=== PATIENT | male | born 1995 | race African-American/Black ===

== ENCOUNTER 2016-09-03 13:50 | Emergency (ER) | payer OTHER ==
[~2016-09-03] VITALS: Ht 193 cm; Wt 95.3 kg
[2016-09-03] MEDS ORDERED: MOBIC7.5 MG PO ×2 (15:21→15:26)
[2016-09-03 15:52] VITALS: BP 130/82
== END 2016-09-03 15:54 | disposition home or self-care (01) ==
LOC: ER 13:50
DX: S20.211A Contusion of right front wall of thorax, initial encounter (principal); F12.10 Cannabis abuse, uncomplicated; V43.92XA Unspecified car occupant injured in collision with other type car in traffic accident, initial encounter; Y93.I9 Activity, other involving external motion; Y92.488 Other paved roadways as the place of occurrence of the external cause; Y99.9 Unspecified external cause status

== ENCOUNTER 2017-01-01 08:20 | Emergency (ER) | payer OTHER ==
[~2017-01-01] VITALS: Ht 193 cm; Wt 93.4 kg
[~2017-01-01 08:20] MED LIST: MOBIC7.5 MG PO
[2017-01-01 08:45] LABS: URINE BILIRUBIN NEGATIVE (Negative); URINE BLOOD NEGATIVE (Negative); URINE COLOR YELLOW; URINE GLUCOSE-RANDOM* NEGATIVE (Negative); URINE KETONES NEGATIVE (Negative); URINE LEUKOCYTES-REFLEX NEGATIVE (Negative); URINE PROTEIN (DIPSTICK) NEGATIVE (Negative); URINE UROBILINOGEN 0.2 E.U./dl (0.2-1.0)
[2017-01-01 10:16] VITALS: BP 143/84
== END 2017-01-01 10:14 | disposition home or self-care (01) ==
LOC: ER 08:20
PROVIDERS: Emergency Medicine
DX: Z20.2 Contact with and (suspected) exposure to infections with a predominantly sexual mode of transmission (principal); F10.99 Alcohol use, unspecified with unspecified alcohol-induced disorder